=== PATIENT | female | born 1945 | race Caucasian/White ===

== ENCOUNTER 2016-09-15 13:30 | Day surgery (SDC) | payer MEDICARE ==
[~2016-09-15] VITALS: Ht 162.6 cm; Wt 56.0 kg
[~2016-09-15 13:30] MED LIST: ASPI-973 PO; Lactated Ringer's 1,000 ML IV ONE; Lactated Ringer's 1,000 ML IV SCH; MetoCLOpramide 5 mg/mL 2 mL Inj IVPUSH PRN; Ondansetron 2 mg/mL 2 mL Inj IVPUSH PRN
[2016-09-15] MEDS ORDERED: Propofol 10,000 mCg/mL 20 mL Inj ONE (13:31)
[2016-09-15 14:16] VITALS: BP 136/82; PULSE 65; RESP 16; O2SAT 99
--- NOTE | 2016-09-15 15:11 | PCM.HPANE ---
Patient Data Surgeon Admitting Provider: Attending Provider:Kyra Templeton MD Primary Care Physician:Gayla Knox MD Other Provider:Elda Singleton Anesthesia Reason for Visit Personal History Of Colonic Polyps Ht/WT & BMI Height (Feet): 5 Height (Inches): 4 Weight (Kilograms): 56 Body Mass Index 21.00 Allergies Coded Allergies: shellfish derived (Verified Allergy, Intermediate, HIVES, 09/14/16) Past Anesthesia History Anesthesia History: Denies:: Abnormal Airway, Anesthesia Reactions (HAD DIFFICULTY WITH SEDATION HYPOTENSIVE AND BRADYCARDIC EPISODE), Difficult Intubation, Fam Anesthesia Reaction, Fam Malignant Hypertherm, Malignant Hyperthermia Diabetes History Hx Diabetes?: No MRSA MRSA: No Medications Blood Thinner: Aspirin Hypertension Medication: No Home Meds Incl Beta Yana: No Reported Medications Aspirin 81 Mg [id number] Mg PO DAILY Ref 0 09/14/16 History History of ENT Problems?: No HEENT History: Denies:: Abnormal Airway Difficult Intubation Dysphagia Hearing Problem Denture Type: None Teeth Condition: Missing Teeth Hx of Heart Problems?: No Cardiovascular History: Denies:: AICD Pacemaker Valvular Heart Disease Hx of Respiratory Problem?: No Respiratory History: Positive for:: COPD Other History/Comment Smoker COPD Hx Neurologic Problems?: No Neurological History: Denies:: CVA Hx of GI Problems?: No Hx of Problems?: No Female Hx: Denies:: Currently Hx Musculoskeletal Problems?: No Musculoskeletal History: Denies:: Fibromyalgia Joint Replacement Hx of Psycho/Social Problems?: No Psycho Social History: Denies:: Anxiety Hx Depression Hx Surgeries?: Yes (R ILIAC STENT 2013, TONSILS) Hx Any Other Health Problems?: Yes Hx Diabetes: No Hx Alcohol Use: No Smoking Status: Current Every Day Smoker Stop/Bang Treated for Sleep Apnea?: No Do You Have a CPAP Machine?: No S-Snoring: Do You Snore Loudly: Yes T-Tired: feel tired, fatigued: No O-Obsered: Observed not breath: No P-Blood Pressure: treated: No B- Body Mass Index > 35 kg/m2: No A- Age over 50: Yes N- Neck Large Circumference: No G- Gender Male: No AMANDA Total Score: 2 Risk Assessment Category Category 1A: Patient has history of documented sleep apnea, and HAS NOT received any narcotic, sedative or anesthesia administration during this stay. Category 1B: Patient has history of documented sleep apnea, and HAS received any narcotic , sedative or anesthesia administration during this stay Category 2: Patient has SUSPECTED Obstructive Sleep Apnea, and HAS received any narcotic , sedative or anesthesia administration during this stay. Category 3: Patient has SUSPECTED Obstructive Sleep Apnea and HAS NOT received narcotic, sedative or anesthesia administration during this stay. Category 4: Outpatient in Procedural Areas with known sleep apnea or who screen positive for High Risk via the STOP/BANG questionnaire. Exam Exam Vital Signs Vital Signs Date Time Temp Pulse Resp B/P Pulse Ox O2 Delivery O2 Flow Rate FiO2 09/15/16 14:16 37.1 65 16 136/82 99 Room Air General Appearance: Alert, Oriented X3 HEENT/AIRWAY: MP 2, Neck Movement (FROM) Lungs: Clear to Auscultation, Clear to Percussion Heart: Exam Unremarkable, Regular Rate/Rhythm Plan Impression Patient chart reviewed, patient interviewed and anesthestic plan with risks, benefits, and alternatives discussed, and informed consent obtained. ASA Physical Status: ASA2 Mod Systemic Disease Anesthetic Plan: GA, MAC Bene/Risks/Altern/Consents: Yes HP Complete Prior to Induction: Yes Dev Rodríguez MD Sep 15, 2016 15:11
[2016-09-15 15:39] VITALS: BP 94/69; PULSE 92; RESP 16; O2SAT 97
--- NOTE | 2016-09-15 15:41 | PCM.ANEP1 ---
Post Anesthesia Phase 1 PACU Phase 1 Assessment Vital Signs Vital Signs Date Time Temp Pulse Resp B/P Pulse Ox O2 Delivery O2 Flow Rate FiO2 09/15/16 15:39 92 16 94/69 97 Room Air 09/15/16 14:16 37.1 65 16 136/82 99 Room Air Anesthetic Administered: MAC Level of Alertness: Awake, talking MELISSA's with Equal Strength: Yes Pain: No Nausea or Vomiting: No Cardiovascular Function and Hy: Yes Oxygen Delivery: Room Air Lungs: Clear to Auscultation, Clear to Percussion Comments See anesth record for PACU VS> PACU VSS Dev Rodríguez MD Sep 15, 2016 15:41
[2016-09-15 15:49] VITALS: BP 142/74; PULSE 76; RESP 16; O2SAT 95
--- NOTE | 2016-09-15 23:27 | ENDO ---
[address] [address] ENDOSCOPY PROCEDURE PATIENT: MONTY BIRD : 1945 MR#: [id number] ADMIT: 09/15/2016 JOB ID: [id number] PROCEDURE: Colonoscopy. INDICATION: Patient with a personal history of colon polyps as well as a family history of colon cancer. Patient's ASA classification, Mallampati score, and medications as per anesthesia note. INSTRUMENT USED: PCF H 190 DL. PREPARATION QUALITY: Fair. PROCEDURE DETAILS: After informed consent was obtained, the patient was brought to the GI suite, where she was placed on oxygen via nasal cannula and monitored with continuous pulse oximeter, telemetry, and blood pressure monitoring. A time-out was performed. Then, she was placed in a left lateral decubitus position. Medications were administered for sedation. Digital rectal exam was performed and was unremarkable. The colonoscope was then inserted into the rectum and advanced under direct visualization to the cecum, which was identified by the presence of the ileocecal valve and appendiceal orifice. Once the cecum was reached, colonoscope was withdrawn back into the rectum and mucosa and lumen were examined. In the rectum, retroflexion was performed. Following retroflexion, remaining air in the rectum was suctioned, and the procedure was completed. FINDINGS: 1. In the sigmoid colon there were two sessile polyps measuring 5 and 7 mm. Both polyps were removed using a hot snare. 2. In the rectum, there was an approximately 6 mm sessile polyp that was removed with a hot snare. IMPRESSION: 1. Two sigmoid polyps. 2. Rectal polyp. RECOMMENDATIONS: 1. Avoid NSAIDs and anticoagulants for 72 hours. 2. Repeat colonoscopy in three years. COMPLICATIONS: None. ESTIMATED BLOOD LOSS: Zero.
--- NOTE | 2016-09-19 14:40 | PATH ---
SURGICAL PATHOLOGY Attending Physician:Shobha Brush CASE STATUS: Signed Out PATIENT NAME: MONTY BIRD PID: [id number] : 1945 DATE COLLECTED:09/15/2016 00:00 SPECIMEN: 1: Colon, Biopsy 2: Rectum, Biopsy CLINICAL HISTORY: 1). SIGMOID POLYP X2 2). RECTAL POLYP X1 FINAL DIAGNOSIS: 1. Sigmoid Colon, Polyps x2, Biopsies: Tubular adenoma in 2 of 3 fragments. Hyperplastic polyp in 1 fragment. 2. Rectum, Polyp x1, Biopsy: Tubular adenoma. ICD10: D12.5 D12.8 GROSS DESCRIPTION: Received are two formalin-filled containers, both labeled with the patient' s name: 1. Received in formalin, labeled with the patient' s name and "sigmoid polyp", are two fragments of sood, soft tissue ranging in size from 0.3 x 0.2 x 0.2 cm to 0.4 x 0.3 x 0.2 cm. All fragments are totally submitted in cassette 1A. 2. Received in formalin, labeled with the patient' s name and "rectal polyp", is one fragment of sood, soft tissue measuring 0.3 x 0.2 x 0.2 cm. The fragment is totally submitted in cassette 2A. ([id number]) ICD-9 CODES: CPT CODES: 1: 74527 2: 42286 Electronically Signed Out Day Hardy MD [facility] Pathology [facility], [place] [address] Technical component performed at [facility], [address] [place] [address] Ave[address], [place], [address]
== END 2016-09-15 23:59 | disposition home or self-care (01) ==
LOC: END 13:30
PROVIDERS: ATTEND Internal Medicine Gastroenterology
DX: Z12.11 Encounter for screening for malignant neoplasm of colon (principal); D12.5 Benign neoplasm of sigmoid colon; D12.8 Benign neoplasm of rectum; Z86.010 Personal history of colon polyps; Z80.0 Family history of malignant neoplasm of digestive organs; Z79.82 Long term (current) use of aspirin
CPT/HCPCS: 45385; J7120

== ENCOUNTER 2016-12-27 06:50 | Day surgery (SDC) | payer MEDICARE ==
[2016-12-27] VITALS (9 sets, daily range): BP systolic 90–127; BP diastolic 50–72; PULSE 64–82; RESP 13–19; O2SAT 94–100
[~2016-12-27] VITALS: Ht 162.6 cm; Wt 55.5 kg
[~2016-12-27 06:50] MED LIST changes: +CeFAZolin Inj 2 GM in IV Premix 1 EACH IV ONE; +DOCO1CAP3 PO; -Lactated Ringer's 1,000 ML IV ONE; -Lactated Ringer's 1,000 ML IV SCH; +MULT-1018 PO; -MetoCLOpramide 5 mg/mL 2 mL Inj IVPUSH PRN; -Ondansetron 2 mg/mL 2 mL Inj IVPUSH PRN
[2016-12-27] MEDS ORDERED: Propofol 10,000 mCg/mL 20 mL Inj ONE (06:51)
[2016-12-27] MEDS ORDERED: Dexamethasone 4 mg/mL Inj ONE (06:51)
[2016-12-27] MEDS ORDERED: EPHEDrine/NS 5 mg/mL 5 mL Syringe ONE (06:51)
[2016-12-27] MEDS ORDERED: Ondansetron 2 mg/mL 2 mL Inj ONE (06:51)
[2016-12-27] MEDS ORDERED: Phenylephrine/NS 100 mCg/mL 10 mL Syringe IVPUSH ONE (06:51)
[2016-12-27] MEDS ORDERED: fentaNYL-PF 50 mCg/mL 2 mL Inj ONE (06:51)
[2016-12-27] MEDS: Lactated Ringer's 1,000 ML IV SCH ×2 (06:58→09:38)
--- NOTE | 2016-12-27 08:17 | PCM.HPANE ---
Patient Data Date of Service: Dec 27, 2016 Surgeon Admitting Provider: Attending Provider:Fawn Tran DPM Primary Care Physician:Gayla Knox MD Other Provider:Elda Singleton Anesthesia Reason for Visit Hallux Valgus, Metatarsal Deformity, Subluxation Ht/WT & BMI Height (Feet): 5 Height (Inches): 4.00 Weight (Kilograms): 55.5 Body Mass Index 20.00 Allergies Coded Allergies: shellfish derived (Verified Allergy, Intermediate, HIVES, 12/21/16) pt states reactions to edible seafood- has not had exposure to topical iodine- suspects that she would react to that as well Past Anesthesia History Anesthesia History: Positive for:: Anesthesia Reactions (bradycardia with colonoscopy - procedure aborted), Fam Anesthesia Reaction (mother - nausea and vomiting ), Denies:: Abnormal Airway, Difficult Intubation, Fam Malignant Hypertherm, Malignant Hyperthermia Diabetes History Hx Diabetes?: No MRSA MRSA: No Medications Blood Thinner: Aspirin Hypertension Medication: No Home Meds Incl Beta Yana: No Reported Medications Multivitamin (Multi Vitamin Daily)1 Each Tablet1 Each PO DAILY 30 Days Ref 0 12/21/16 Docosahexanoic Acid/Epa (Fish Oil Concentrate Softgel)1 Each Capsule1 Each PO DAILY 12/21/16 Aspirin 81 Mg [id number] Mg PO DAILY Ref 0 12/21/16 Discontinued Reported Medications Aspirin 81 Mg [id number] Mg PO DAILY Ref 0 09/14/16 History History of ENT Problems?: Yes HEENT History: Positive for:: TMJ (wears nightguard ) Denies:: Abnormal Airway Cataracts Difficult Intubation Dysphagia Glaucoma Hearing Problem Sinus Problem Denture Type: None Teeth Condition: Within Normal Limits Other HEENT Pertinent History: gum surgery 12/16/16, graft to lower mid-front gums, healing well Hx of Heart Problems?: Yes Cardiovascular History: Positive for:: Peripheral Vascular (right iliac stent placed 2012) Denies:: AICD Atrial Fibrillation Chest Pain Congestive Heart Failure Coronary Artery Disease Edema Heart Murmur Hypertension Irregular Heartbeat Pacemaker Rheumatic Fever Valvular Heart Disease Other Cardiac History: Denies SOB/KANG Hx of Respiratory Problem?: No Respiratory History: Denies:: Asthma COPD Emphysema Oxygen Administration Pneumonia Tuberculosis Use of C-PAP Machine Use of Inhalers / NEBS Hx Neurologic Problems?: No Neurological History: Denies:: CVA Dementia Headaches Multiple Sclerosis Parkinson's Disease Seizures TIA Hx of GI Problems?: No Gastrointestinal History: Denies:: Gastroesphageal Reflux Hiatal Hernia Other GI Pertinent History: denies SHELBI Hx of Problems?: No Genitourinary History: Denies:: Kidney Stones Urinary Tract Infection Female Hx: Denies:: Currently Problems with Breasts? Skin History: Denies:: History Skin Disorders? Pressure Ulcers Hx Musculoskeletal Problems?: Yes Musculoskeletal History: Positive for:: Musculoskeletal Trauma (right foot current admission problem) Osteoarthritis Denies:: Back Injury Degenerative Joint Fibromyalgia Joint Replacement Myasthenia Gravis Systemic Lupus Hx of Psycho/Social Problems?: No Psycho Social History: Denies:: Anxiety Hx Depression Hx Surgeries?: Yes (R ILIAC STENT 2013, TONSILS) Hx Any Other Health Problems?: Yes Other History: Denies:: Cancer Thyroid Disease History Blood Transfusions: Positive for:: Accept Blood Products? Denies:: Blood Transfusions Hx Diabetes: No Hx Alcohol Use: NoHx Substance Use: No Smoking Status: Current Every Day Smoker Have You Smoked inLast 12 mo: Yes (up to 15 cigs daily) Stop/Bang Treated for Sleep Apnea?: No Do You Have a CPAP Machine?: No S-Snoring: Do You Snore Loudly: No T-Tired: feel tired, fatigued: No O-Obsered: Observed not breath: No P-Blood Pressure: treated: No B- Body Mass Index > 35 kg/m2: No A- Age over 50: Yes N- Neck Large Circumference: No G- Gender Male: No AMANDA Total Score: 1 AMANDA Risk Assessment: Low Risk, <3 Yes Risk Assessment Category Category 1A: Patient has history of documented sleep apnea, and HAS NOT received any narcotic, sedative or anesthesia administration during this stay. Category 1B: Patient has history of documented sleep apnea, and HAS received any narcotic , sedative or anesthesia administration during this stay Category 2: Patient has SUSPECTED Obstructive Sleep Apnea, and HAS received any narcotic , sedative or anesthesia administration during this stay. Category 3: Patient has SUSPECTED Obstructive Sleep Apnea and HAS NOT received narcotic, sedative or anesthesia administration during this stay. Category 4: Outpatient in Procedural Areas with known sleep apnea or who screen positive for High Risk via the STOP/BANG questionnaire. Exam Exam Vital Signs Vital Signs Date Time Temp Pulse Resp B/P Pulse Ox O2 Delivery O2 Flow Rate FiO2 12/27/16 07:29 36.2 64 16 127/72 100 Room Air General Appearance: Alert, Oriented X3, Cooperative HEENT/AIRWAY: MP 1 Lungs: Clear to Auscultation Heart: Regular Rate/Rhythm, No Murmurs/Rubs/Gallops Meds/Labs/Diagnostics Admission Meds Current Medications Lactated Ringer's (Lr) 1,000 ml @ 120 mls/hr Q8H20M IV Last administered on t 06:58; Start 12/27/16 at 05:00; Stop 12/27/16 at 13:19 Plan Impression Patient chart reviewed, patient interviewed and anesthestic plan with risks, benefits, and alternatives discussed, and informed consent obtained. ASA Physical Status: ASA2 Mod Systemic Disease Anesthetic Plan: GA Bene/Risks/Altern/Consents: Yes HP Complete Prior to Induction: Yes Evelio Hou DO Dec 27, 2016 08:17
[2016-12-27] MEDS ORDERED: Lidocaine 2%-Epi 1:100,000 20 mL Inj NERVEBLOCK ONE (09:48)
[2016-12-27] MEDS ORDERED: Lactated Ringer's 1,000 ML IV SCH (10:06)
[2016-12-27] MEDS ORDERED: Lactated Ringer's 500 ML IV PRN (10:06)
[2016-12-27] MEDS ORDERED: HYDROmorphone 1 mg/mL Inj IVPUSH PRN (10:10)
[2016-12-27] MEDS ORDERED: MetoCLOpramide 5 mg/mL 2 mL Inj IVPUSH PRN (10:10)
[2016-12-27] MEDS ORDERED: EPHEDrine Sulfate 50 mg/mL Inj IVPUSH PRN (10:10)
[2016-12-27] MEDS ORDERED: Dexamethasone 4 mg/mL Inj IVPUSH PRN (10:10)
[2016-12-27] MEDS ORDERED: Phenylephrine 10,000 mCg/mL Inj IVPUSH PRN (10:10)
[2016-12-27] MEDS ORDERED: fentaNYL-PF 50 mCg/mL 2 mL Inj IVPUSH PRN (10:10)
[2016-12-27] MEDS ORDERED: Ondansetron 2 mg/mL 2 mL Inj IVPUSH PRN (10:10)
--- NOTE | 2016-12-27 11:55 | PCM.PODPO ---
Podiatry Operative Report Date of Service: Dec 27, 2016 Date of Service Dec 27, 2016 Pre Operative Diagnosis Right foot hallux valgus, 2nd hammertoe, 3rd metatarsal deformity. Post Operative Diagnosis Right foot hallux valgus, 2nd hammertoe, 3rd metatarsal deformity. Procedure 1. Right bunionectomy with Joce osteotomy. 2. Right 2nd hammertoe repair with 2nd metatarsal osteotomy. 3. Right 3rd metatarsal osteotomy Surgeon Surgeon: Fawn Tran DPM Assistants: None Indication for Procedure Pain, deformity, callus formation. Findings Consistent with radiographic findings of osteoarthritis in the 1st and 2nd MTP joints, about 40% loss of articular cartilage. Good correction of all deformities. Soft plantar pad after 3rd metatarsal osteotomy. Details of Procedure The patient was identified in the preoperative holding area and brought back to the operating room. She was placed on the operating table in supine position. The timeout protocol was completed in the patient's name and site of surgery confirmed. General anesthesia was initiated. The right foot was prepped and draped in usual aseptic manner. The right leg was positioned on the bone foam for easier access and fluoroscopic guidance. The foot was anesthetized in individual ray blocks with 1% lidocaine plain and augmented with 2% lidocaine with epinephrine on the dorsal surface along the incision lines. No tourniquet was necessary. Bleeding vessels were cauterized as needed. 1. Right bunionectomy with Joce osteotomy. The first incision was made on the dorsomedial aspect of the first metatarsophalangeal joint. It was deepened bluntly. The capsule was incised linearly, medial to the extensor hallucis longus tendon. Capsule was reflected off of the first metatarsal head dorsally and medially, where the bunion eminence was resected. A limited lateral release was performed until the toe was mobile. At this point the deformity of the bunion itself was adequately reduced, but the abduction of the great toe was still quite rigid. The incision was then extended distally both through skin and subcutaneous tissue across the proximal phalanx. A medially based wedge osteotomy was performed with a bone saw and closed to decrease the deformity. This was fixated with one 2.7 mm cortical screw. Fluoroscopic confirmation was performed, the wound irrigated with normal saline. The capsular and periosteal tissue was closed with 3-0 Vicryl the EHL tendon was also medially suture to the capsule with 3-0 Vicryl, and the skin was closed with 30 and 4-0 Prolene. 2. Right 2nd hammertoe repair with 2nd metatarsal osteotomy. The second incision was made on the dorsal lateral aspect of the second metatarsophalangeal joint, deepened bluntly to the capsule. A lateral linear incision was made through the second metatarsophalangeal joint, carrying it distally across the proximal interphalangeal joint. In preparation for fusion, the extensor tendon was left intact and the proximal phalangeal head and middle phalangeal base were resected. This gave enough laxity to get the joint in the proper position without any hardware needed. There was enough tension on the extensor tendon to hold the joint in the right position. Attention was then directed back to the metatarsal head, which was transected distal dorsally to proximal plantarly across the head and metatarsal neck, performing a Ricardo osteotomy. This osteotomy was temporarily fixated with a 0.045 K wire, then two 2 mm cortical screws were inserted, one in lag fashion, one neutral across the osteotomy. 3. Right third metatarsal osteotomy. Through the same incision as the second procedure, the soft tissue was retracted medially and the third metatarsophalangeal joint capsule incised linearly on the medial aspect. The metatarsal head and neck were transected distal dorsally to plantar proximally to achieve shortening of about 4 mm. Fluoroscopic guidance was used along the way to confirm metatarsal parabola. The fixation across this osteotomy was the same as the fixation for the second metatarsal. I irrigated the wound with normal saline, closed deep tissues with 4-0 Vicryl, repaired the lateral aspect of the peritenon of the EDL tendon with 4 Vicryl. The skin was closed with 3-0 Prolene in interrupted sutures. Dressing consisted of Soler silk across both incisions, normal saline moistened 4 x 4 gauze, dry gauze, Kerlix, and Coban. The patient was placed into a postoperative shoe on the right. She was weaned off of general anesthesia and taken to the recovery room with vital signs stable and the vascular status to the right foot intact. Grafts, Implants: Implants-See Implant Record Complications There were no periprocedural complications identified. Condition Stable Anesthetic Administered: GA Catheters: None Output, Estimated Blood Loss: 20 (ml) Blood Admin during surgery: No Surgical Specimen Removed: No Specimen sent to Pathology: No Post Operative Plan The patient will be weightbearing as tolerated in a postoperative shoe. Her states that she has a knee scooter at home to use for the first week so that pain is more tolerable and so that it is less stress on her right foot. The patient has a by mouth pain medication prescription at home. Follow-up appointment is scheduled with me in 1 week. In that time. She was instructed not to get her dressing wet or change it on her own without reporting it to us. Fawn Tran DPM Dec 27, 2016 11:54
[2016-12-27] MEDS ORDERED: oxyCODONE-Acetamin 5-325 mg Tablet PO PRN (12:00)
== END 2016-12-27 23:59 | disposition home or self-care (01) ==
LOC: SAS 06:50
PROVIDERS: ATTEND Podiatrist
DX: M20.11 Hallux valgus (acquired), right foot (principal); M20.41 Other hammer toe(s) (acquired), right foot; M21.961 Unspecified acquired deformity of right lower leg; S93.10 Unspecified subluxation and dislocation of toe; Z79.82 Long term (current) use of aspirin
CPT/HCPCS: 28296; 28308; C1713; J0690; J1100; J2250; J2370; J2405; J3010; J7120